=== PATIENT | female | born 1990 | race African-American/Black ===

== ENCOUNTER 2017-10-12 20:31 | Observation (INO) | payer MEDICAID ==
[~2017-10-12] VITALS: Ht 160 cm; Wt 61.2 kg
[2017-10-12] MEDS ORDERED: PREN1TAB33 MT (20:47)
[2017-10-12] MEDS ORDERED: LACTATED RINGERS 1,000 ML IV SCH (21:16)
[2017-10-12 21:24] LABS: CLARITY URINE CLOUDY (CLEAR); COLOR URINE YELLOW (YELLOW); KETONES URINE 1+ (NEGATIVE); LEUKOCYTE ESTERASE URINE TRACE (NEGATIVE); NITRITE URINE NEGATIVE (NEGATIVE); OCCULT BLOOD URINE NEGATIVE (NEGATIVE); PH URINE 6.5 (4.5-8.0); PROTEIN URINE TRACE (NEGATIVE); SPECIFIC GRAVITY URINE 1.036 (1.005-1.030)
== END 2017-10-12 22:20 | disposition home or self-care (01) ==
LOC: L&D 20:31
PROVIDERS: ADMIT Obstetrics & Gynecology; ATTEND Obstetrics & Gynecology
DX: O21.2 Late vomiting of pregnancy (principal); O62.9 Abnormality of forces of labor, unspecified; Z3A.31 31 weeks gestation of pregnancy
CPT/HCPCS: 81003; 96360; G0378; J7120; 99281

== ENCOUNTER 2017-10-12 22:31 | Emergency (ER) | payer MEDICAID ==
[~2017-10-12] VITALS: Ht 160 cm; Wt 61.9 kg
[~2017-10-12 22:31] MED LIST: PREN1TAB33 MT
[2017-10-12 23:10] VITALS: BP 112/60
== END 2017-10-13 03:57 | disposition left against medical advice (07) ==
LOC: ER 22:31
DX: R11.10 Vomiting, unspecified (principal); Z53.21 Procedure and treatment not carried out due to patient leaving prior to being seen by health care provider